=== PATIENT | female | born 1970 | race Caucasian/White ===

== ENCOUNTER → 2024-12-31 08:18 | Outpatient (REF) | payer OTHER, SELFPAY | LOC: RAD 08:18 | PROVIDERS: ATTENDING PHYSICIAN Family Medicine | DX: M54.50 Low back pain, unspecified (principal) | CPT/HCPCS: 72110 ==

== ENCOUNTER 2025-01-21 13:24 | Outpatient (RCR) | payer OTHER, SELFPAY | END 2025-01-21 23:59 | disposition home or self-care (01) | LOC: RPT 13:24 | PROVIDERS: ATTENDING PHYSICIAN Specialist; FAMILY PHYSICIAN Family Medicine | DX: M48.02 Spinal stenosis, cervical region (principal); Z73.6 Limitation of activities due to disability; M54.2 Cervicalgia; R20.2 Paresthesia of skin; R20.0 Anesthesia of skin; G43.909 Migraine, unspecified, not intractable, without status migrainosus | CPT/HCPCS: 97010; 97110; 97112; 97140; 97162; 97530 ==

== ENCOUNTER → 2025-02-20 13:50 | Outpatient (REF) | payer OTHER, SELFPAY | LOC: WDC 13:50 | PROVIDERS: ATTENDING PHYSICIAN Obstetrics & Gynecology; FAMILY PHYSICIAN Family Medicine | DX: Z12.31 Encounter for screening mammogram for malignant neoplasm of breast (principal) | CPT/HCPCS: 77063; 77067 ==

== ENCOUNTER 2025-02-21 07:14 | Outpatient (RCR) | payer OTHER, SELFPAY | END 2025-02-21 23:59 | disposition home or self-care (01) | LOC: RPT 07:14 | PROVIDERS: ATTENDING PHYSICIAN Specialist; FAMILY PHYSICIAN Family Medicine | DX: M48.02 Spinal stenosis, cervical region (principal); Z73.6 Limitation of activities due to disability; M54.2 Cervicalgia; R20.2 Paresthesia of skin; R20.0 Anesthesia of skin; G43.909 Migraine, unspecified, not intractable, without status migrainosus | CPT/HCPCS: 97010; 97110; 97112; 97140; 97530 ==

== ENCOUNTER 2025-03-15 12:23 | Outpatient (RCR) | payer OTHER, SELFPAY | END 2025-03-15 12:25 | disposition home or self-care (01) | LOC: RPT 12:23 | PROVIDERS: ATTENDING PHYSICIAN Specialist; FAMILY PHYSICIAN Family Medicine | DX: M48.02 Spinal stenosis, cervical region (principal); Z73.6 Limitation of activities due to disability; M54.2 Cervicalgia; R20.2 Paresthesia of skin; R20.0 Anesthesia of skin; G43.909 Migraine, unspecified, not intractable, without status migrainosus | CPT/HCPCS: 97110; 97112; 97140 ==

== ENCOUNTER → 2025-05-14 10:53 | Outpatient (REF) | payer OTHER, SELFPAY | LOC: REG 10:53 | PROVIDERS: ATTENDING PHYSICIAN Otolaryngology | DX: G50.0 Trigeminal neuralgia (principal); J32.0 Chronic maxillary sinusitis | CPT/HCPCS: 70220 ==